=== PATIENT | female | born 1970 | race Caucasian/White ===

== ENCOUNTER 2016-10-08 17:08 | Emergency (ER) | payer OTHER ==
[~2016-10-08] VITALS: Ht 170.2 cm; Wt 79.4 kg
[2016-10-08] MEDS ORDERED: SODIUM CHLORIDE 0.9% 500 ML IVB ONE (18:13)
[2016-10-08] MEDS ORDERED: ONDANSETRON HCL 4 MG/2 ML VIAL IV ONE (18:15)
[2016-10-08] MEDS ORDERED: HYDROmorphone HCL 2 MG/ML VL IV ONE ×2 (18:15→21:15)
[2016-10-08 18:47] LABS: Urine Bilirubin Negative (Negative); Urine Blood 3+ /uL (Negative); Urine Color PINK (Yellow); Urine Glucose Normal (Normal); Urine Ketone 1+ (Negative); Urine Mucus FEW (None Seen); Urine Nitrite Negative (Negative); Urine RBC 37 /hpf (0 - 4); Urine Squamous Epithelial Cell FEW /hpf (<5); Urine Urobilinogen Normal (Negative); Urine pH 5.5 (5.0-8.0)
[2016-10-08 19:10] LABS: Basophils # (auto) 0 uL; Basophils % (auto) 0.3 % (0.0-2.0); Eosinophils # (auto) 0 uL; Eosinophils % (auto) 0.1 % (0.0-7.0); Hematocrit 41.1 % (36.0-46.0); Hemoglobin 13.6 g/dL (12.2-16.2); Lymphocytes # (auto) 1.1 uL; Lymphocytes % (auto) 9.7 % (10.0-50.0); Mean Corpuscular Hemoglobin 28.7 pg (28.0-32.0); Mean Corpuscular Volume 86.9 fL (80.0-100.0); Monocytes # (auto) 0.6 uL; Monocytes % (auto) 5.1 % (0.0-12.0); Neutrophils # (auto) 9.6 uL; Neutrophils % (auto) 84.8 % (37.0-80.0); Platelet Count (auto) 206 10^3/uL (140-450); Red Cell Distribution Width 13.9 % (11.6-16.0); White Blood Cell 11.3 10^3/uL (4.4-10.8)
[2016-10-08 19:58] LABS: Albumin 4.1 g/dL (3.4-5.0); BUN/Creatinine Ratio 13.7; Bilirubin, Total 0.6 mg/dL (0.2-1.0); Calcium 8.8 mg/dL (8.5-10.1); Potassium 3.8 mmol/L (3.5-5.1); Total Protein 8.4 g/dL (6.4-8.2)
[2016-10-08] MEDS ORDERED: IOHEXOL 300 MG/ML 100ML BOTTLE IJ ONE (20:25)
[2016-10-08] MEDS ORDERED: KETOROLAC TROMETH 30 MG/ML 1ML VIAL IV ONE (22:45)
[2016-10-08 23:43] VITALS: BP 134/79
== END 2016-10-08 23:47 | disposition home or self-care (01) ==
LOC: ER 17:12
DX: R10.32 Left lower quadrant pain (principal); R11.2 Nausea with vomiting, unspecified; R61 Generalized hyperhidrosis; M06.9 Rheumatoid arthritis, unspecified; R10.31 Right lower quadrant pain
CPT/HCPCS: 36415; 74176; 80053; 81001; 81025; 83690; 85025; 94761; 96361; 96374; 96375; 96376; 99285; J1170; J1885; J2405; J7030